=== PATIENT | male | born 1970 | race Hispanic/Latino ===

== ENCOUNTER 2019-01-23 22:17 | Inpatient (IN) | payer SELFPAY ==
--- NOTE | 2019-01-23 23:03 | RAD ---
1 view chest: CLINICAL HISTORY: Emergency exam, pain COMPARISON: None FINDINGS: There is no focal consolidation, effusion, or pneumothorax. Cardiac silhouette is normal in size. No acute osseous abnormality. IMPRESSION: No focal consolidation.
[2019-01-23 23:39] LABS: Bilirubin Negative (Negative); Blood, Urine Negative (Negative); Clarity Clear (Clear); Glucose, Urine (Dipstick) Greater than 1000 mg/dL (Negative); Leukocyte Negative Leu/uL (Negative); Nitrite Negative (Negative); Protein, Urine (Dipstick) Negative (Neg-Trace); Urobilinogen Normal mg/dL (Less than 2)
[2019-01-24 00:18] LABS: Hemoglobin 14.8 g/dL (14.0-18.0); Mean Corpuscular HGB CONC 34.1 g/dL (32.0-36.0); Mean Corpuscular Hemoglobin 32.7 pg (27.0-31.0); Mean Corpuscular Volume 95.9 fL (78.0-98.0); RBC Distribution Width 11.8 % (11.5-14.5); Red Blood Cell (RBC) Count 4.54 mill/uL (4.70-6.10); White Blood Cell (WBC) Count 4.7 thou/uL (4.8-10.8)
[2019-01-24 00:35] LABS: #Basophils 0.1 thou/uL (0.0-0.2); #Lymphocytes 1.4 thou/uL (1.20-3.40); #Monocytes 0.3 thou/uL (0.11-0.59); #Neutrophils 2.9 thou/uL (1.40-6.50); %Basophils 1.7 % (0.0-1.0); %Eosinophils 0.9 % (0.0-10.0); %Lymphocytes 29.2 % (21.0-51.0); %Monocytes 6.5 % (0.0-10.0); %Neutrophils 61.7 % (42.0-75.0); Mean Platelet Volume 10.4 fL (7.4-10.4); Platelet Count 115 thou/uL (130-400); Platelet Morphology Comment Appears Decreased
[2019-01-24 00:38] LABS: ALT (SGPT) 25 U/L (8-55); AST (SGOT) 16 U/L (5-34); Albumin 4.1 g/dL (3.5-5.0); Alkaline Phosphatase 81 U/L (40-150); Anion Gap 17 mmol/L (10-20); BUN (Urea Nitrogen) 8 mg/dL (8.9-20.6); Bilirubin, Total 0.4 mg/dL (0.2-1.2); Calc. Creatinine Clearance 0 mL/min (70-130); Carbon Dioxide 19 mmol/L (22-29); Chloride 105 mmol/L (98-107); Estimated GFR-MDRD Greater than 90; Globulin 2.8 g/dL (2.4-3.5); Glucose 406 mg/dL (70-105); Potassium 3.5 mmol/L (3.5-5.1); Protein, Total 6.9 g/dL (6.0-8.3); Sodium 137 mmol/L (136-145)
[2019-01-24] MEDS ORDERED: Ondansetron ODT 4 MG TAB PO PRN (01:25)
[2019-01-24] MEDS ORDERED: Dextrose 5% in Water 1,000 ML IV PRN (01:25)
[2019-01-24] MEDS ORDERED: Dextrose 50% Abboject 50 ML SYRINGE SLOW IVP PRN (01:25)
[2019-01-24] MEDS ORDERED: Acetaminophen 325 MG TAB PO PRN (01:25)
[2019-01-24 01:38] LABS: Hemoglobin A1c 10.9 % (4.0-6.0)
[2019-01-24] MEDS ORDERED: cloNIDine 0.1 MG TAB PO PRN (01:39)
--- NOTE | 2019-01-24 01:47 | PDOC.FPROB ---
FMR OB H&P: Medications - Current Home Medications: Medication Instructions Recorded Confirmed Type No Known 01/24/19 01/24/19 History Allergies/Adverse Reactions: Allergies Allergy/AdvReac Type Severity Reaction Status Date / Time No Known Allergies Allergy Unverified 01/24/19 01:38 FMR OB H&P: Results - Labs Lab results: Laboratory Results - last 24 hr 01/23/19 01/24/19 01/24/19 23:12 00:03 00:04 WBC 4.7 L RBC 4.54 L Hgb 14.8 Hct 43.6 MCV 95.9 MCH 32.7 H MCHC 34.1 RDW 11.8 Plt Count 115 L MPV 10.4 Neutrophils % 61.7 Neutrophils % (Manual) Not Reportable Lymphocytes % 29.2 Monocytes % 6.5 Eosinophils % 0.9 Basophils % 1.7 H Neutrophils # 2.9 Lymphocytes # 1.4 Monocytes # 0.3 Eosinophils # 0.0 Basophils # 0.1 Plt Morphology Comment Appears Decreased L Sodium Potassium Chloride Carbon Dioxide Anion Gap BUN Creatinine Estimated GFR (MDRD) Glucose Hemoglobin A1c Calcium Total Bilirubin AST ALT Alkaline Phosphatase Troponin I Serum Total Protein Albumin Globulin Albumin/Globulin Ratio Urine Color Colorless Urine Clarity Clear Urine pH 5.0 Ur Specific Helen 1.003 Urine Protein Negative Urine Glucose (UA) Greater than 1000 A Urine Ketones Negative Urine Blood Negative Urine Nitrite Negative Urine Bilirubin Negative Urine Urobilinogen Normal Ur Leukocyte Esterase Negative Plasma Alcohol 213 H B-Hydroxybutyrate 01/24/19 01/24/19 01/24/19 00:04 00:04 00:04 WBC RBC Hgb Hct MCV MCH MCHC RDW Plt Count MPV Neutrophils % Neutrophils % (Manual) Lymphocytes % Monocytes % Eosinophils % Basophils % Neutrophils # Lymphocytes # Monocytes # Eosinophils # Basophils # Plt Morphology Comment Sodium 137 Potassium 3.5 Chloride 105 Carbon Dioxide 19 L Anion Gap 17 BUN 8 L Creatinine 0.86 Estimated GFR (MDRD) Greater than 90 Glucose 406 H Hemoglobin A1c Calcium 9.0 Total Bilirubin 0.4 AST 16 ALT 25 Alkaline Phosphatase 81 Troponin I Less than 0.010 Serum Total Protein 6.9 Albumin 4.1 Globulin 2.8 Albumin/Globulin Ratio 1.5 Urine Color Urine Clarity Urine pH Ur Specific Helen Urine Protein Urine Glucose (UA) Urine Ketones Urine Blood Urine Nitrite Urine Bilirubin Urine Urobilinogen Ur Leukocyte Esterase Plasma Alcohol B-Hydroxybutyrate 0.44 H 01/24/19 00:04 WBC RBC Hgb Hct MCV MCH MCHC RDW Plt Count MPV Neutrophils % Neutrophils % (Manual) Lymphocytes % Monocytes % Eosinophils % Basophils % Neutrophils # Lymphocytes # Monocytes # Eosinophils # Basophils # Plt Morphology Comment Sodium Potassium Chloride Carbon Dioxide Anion Gap BUN Creatinine Estimated GFR (MDRD) Glucose Hemoglobin A1c 10.9 H Calcium Total Bilirubin AST ALT Alkaline Phosphatase Troponin I Serum Total Protein Albumin Globulin Albumin/Globulin Ratio Urine Color Urine Clarity Urine pH Ur Specific Helen Urine Protein Urine Glucose (UA) Urine Ketones Urine Blood Urine Nitrite Urine Bilirubin Urine Urobilinogen Ur Leukocyte Esterase Plasma Alcohol B-Hydroxybutyrate FMR OB H&P: A/P - Problem List (1) Hyperglycemia Current Visit: Yes Status: Acute Code(s): R73.9 - HYPERGLYCEMIA, UNSPECIFIED (2) Syncope Current Visit: Yes Status: Acute Code(s): R55 - SYNCOPE AND COLLAPSE (3) Dehydration Current Visit: Yes Status: Acute Code(s): E86.0 - DEHYDRATION (4) Hypertension Current Visit: Yes Status: Acute Code(s): I10 - ESSENTIAL (PRIMARY) HYPERTENSION Discussion: Date/Time: 01/24/19 0145 PCP: JI HPI: This is a 48 yo gentleman being admitted for multiple episodes of syncope in the last week. He states he will feel weak throughout his body sometimes having to lie down. He denies passing out or ever hitting his head. Symptoms resolve after a few minutes. He denies palpitations but he does have a throbbing pain on the left side of his chest which does not radiate. Nothing makes the pain better or worse. He denies focal weakness, headache, or visual disturbances. Patient walks to restroom in ED without any difficulty, denies dizziness/ weakness at the moment. PMH: no medical issues PSH: none Meds: none Allergies: NKDA Soc Hx: denies smoking, drugs. Drinks at 2-3 beers nightly and more on weekend. Denies any blackout drinking episodes. Fm Hx: denies history of CV or DM ED Course: 1L NS REVIEW OF SYSTEMS: Gen: no fever, chills, or sweats Neuro: see hpi Eyes: no visual changes ENT: no hearing changes, no sore throat, no congestion Resp: denies cough, SOB Card: no chest pain, denies palpitations GI: no N/V/D, no abdominal pain MSK: no myalgias, no joint pain/stiffness Skin: no rash, no erythema Vitals: T: 97.4 R: 20 BP: 160/90 P:80 Sat: 98% on RA PHYSICAL EXAMINATION: General: NAD, alert and oriented x3 HEENT: PERRLA, EOMI, normal sclera, oropharynx without erythema or exudate Neck: Supple. Full ROM. Heart/Cardiovascular System: RRR, Cap refill < 3 seconds, no rub, no murmur Lungs/Respiratory System: CTA-B, no resp distress Abdomen/Gastro-Intestinal System: no abdominal tenderness, normal bowel sounds Extremities: Warm extremities. No cyanosis or edema Neuro: No gross deficits appreciated. CN 2-12 grossly intact Psychiatry: Awake, Alert and cooperative with exam Skin: No lesions, rashes, or ulcers Musculoskeletal: Full ROM A/P: # Syncope likely 2/2 dehydration - monitor on tele overnight - Alcohol level 213 - suspect dehydration, arrhythmia cannot be complete ruled out at this time - trend trops - no focal weakness, will not pursue carotid Doppler/CT head at this time # Hyperglycemia - glucose 400, glucosuria - SSI - b-hydroxybutyrate, A1C ordered - Anion gap 17, do not suspect DKA at this time # HTN - PRN clonidine - monitor BP Fluids: NS 140 Code: full PPx: scd Dispo: suspect d/c tomorrow Addendum - Attending - Attending Attestation Date/Time: 01/24/19 5203 I personally evaluated the patient and discussed the management with Dr. Tosha Oreilly. I agree with the History, Examination, Assessment and Plan documented above with any addition or exceptions noted below. Patient here with presyncopal type symptoms over the last few days. He also has uncontrolled DM as a new diagnosis. He was also intoxicated at the time of his presentation. Patient to be admitted for IV fluid hydration, sobriety, insulin initiation and titration, and BP control. Further mgmt per clinical course.
[2019-01-24] MEDS ORDERED: Insulin Regular 300 UNITS/3 ML VIAL ONE (02:02)
--- NOTE | 2019-01-24 02:03 | PDOC.EVN ---
Event Note - Event Note Event Note: New diabetic A1c 10.9 BhB- 0.44 In addition to 10U short acting added 20U lantus (body weight 80 kg) Q1hr accucheck AM labs ordered for 0330 if gap widening will start insulin drip
[2019-01-24] MEDS ORDERED: Insulin Glargine 20 UNITS in Pre-Filled Syringe 1 EACH SC SCH (02:15)
[2019-01-24 03:44] LABS: #Lymphocytes 1.7 thou/uL (1.20-3.40); #Monocytes 0.3 thou/uL (0.11-0.59); #Neutrophils 2.2 thou/uL (1.40-6.50); %Lymphocytes 40.4 % (21.0-51.0); %Monocytes 6.8 % (0.0-10.0); %Neutrophils 50.8 % (42.0-75.0); Hemoglobin 14.4 g/dL (14.0-18.0); Mean Corpuscular HGB CONC 33.8 g/dL (32.0-36.0); Mean Corpuscular Hemoglobin 32.4 pg (27.0-31.0); Mean Corpuscular Volume 95.8 fL (78.0-98.0); Platelet Count 108 thou/uL (130-400); RBC Distribution Width 11.9 % (11.5-14.5); Red Blood Cell (RBC) Count 4.46 mill/uL (4.70-6.10); White Blood Cell (WBC) Count 4.2 thou/uL (4.8-10.8)
[2019-01-24 04:00] LABS: Anion Gap 16 mmol/L (10-20); BUN (Urea Nitrogen) 7 mg/dL (8.9-20.6); Calc. Creatinine Clearance 0 mL/min (70-130); Calcium 8.3 mg/dL (7.8-10.44); Carbon Dioxide 18 mmol/L (22-29); Chloride 108 mmol/L (98-107); Estimated GFR-MDRD Greater than 90; Glucose 287 mg/dL (70-105); Potassium 3.8 mmol/L (3.5-5.1); Sodium 138 mmol/L (136-145)
[2019-01-24 07:45] LABS: Troponin I Less than 0.010 ng/mL (< 0.028)
[2019-01-24] MEDS: Sodium Chloride 0.9% 1,000 ML IV SCH ×4 (10:01→19:54)
[2019-01-24] MEDS ORDERED: HumaLOG 300 UNITS/3 ML VIAL ONE (11:04)
[2019-01-24] MEDS: HumaLOG 300 UNITS/3 ML VIAL SC PRN ×2 (11:06→17:42)
[2019-01-24 13:10] VITALS: BMI 30.3
[2019-01-24 15:36] LABS: Anion Gap 11 mmol/L (10-20); BUN (Urea Nitrogen) 10 mg/dL (8.9-20.6); Calc. Creatinine Clearance 136 mL/min (70-130); Calcium 8.8 mg/dL (7.8-10.44); Carbon Dioxide 25 mmol/L (22-29); Chloride 106 mmol/L (98-107); Estimated GFR-MDRD Greater than 90; Glucose 221 mg/dL (70-105); Potassium 3.9 mmol/L (3.5-5.1); Sodium 138 mmol/L (136-145)
[2019-01-24] MEDS: metFORMIN 500 MG TAB PO SCH (17:42)
[2019-01-25] MEDS: Sodium Chloride 0.9% 1,000 ML IV SCH (01:58)
--- NOTE | 2019-01-25 05:25 | PDOC.FM ---
- Subjective Subjective: Mr. Damon is a 48yo male who presented to the ED for evaluation of multiple episodes of syncope/near syncope. He states that yesterday he felt weak and had to lie down several times. He does not have a PCP and is not aware of any chronic diseases. In the emergency department he was noted to have hypertension, elevated blood glucose, and acute alcohol intoxication. He was given 1L NS and admitted. - Objective MAR Reviewed: Yes Vital Signs & Weight: Vital Signs (12 hours) Temp Pulse Resp BP BP BP Pulse Ox 01/25/19 04:00 97.8 F 72 15 156/93 H 96 01/24/19 23:57 97.3 F L 87 18 150/96 H 98 01/24/19 20:00 98.1 F 82 18 169/100 H 97 01/24/19 19:53 169/100 H Weight Weight 82.611 kg I&O: 01/23/19 01/24/19 01/25/19 06:59 06:59 06:59 Intake Total 240 Balance 240 Result Diagrams: 01/24/19 03:32 01/24/19 15:06 Additional Labs: Laboratory Tests 01/24/19 01/24/19 01/24/19 00:03 00:04 00:04 Hemoglobin A1c 10.9 H Plasma Alcohol 213 H B-Hydroxybutyrate 0.44 H 01/24/19 01/24/19 01/24/19 05:46 07:05 11:02 POC Glucose 212 H 232 H Hemoglobin A1c Troponin I Less than 0.010 01/24/19 01/25/19 17:34 04:09 POC Glucose 167 H 178 H Phys Exam - Physical Examination Constitutional: NAD HEENT: PERRLA, moist MMs, sclera anicteric Neck: no JVD, supple Respiratory: no wheezing, no rales, no rhonchi, clear to auscultation bilateral Cardiovascular: RRR, no significant murmur, no rub Gastrointestinal: soft, non-tender, no distention, positive bowel sounds Musculoskeletal: no edema, pulses present Neurological: non-focal, normal sensation, moves all 4 limbs Psychiatric: normal affect, A&O x 3 Skin: no rash, normal turgor Dx/Plan (1) Hyperglycemia Code(s): R73.9 - HYPERGLYCEMIA, UNSPECIFIED Status: Acute (2) Hypertension Code(s): I10 - ESSENTIAL (PRIMARY) HYPERTENSION Status: Acute (3) Syncope Code(s): R55 - SYNCOPE AND COLLAPSE Status: Acute - Plan Plan: 1. Syncope * Has felt better overnight, no evidence of arrhythmia on telemetry. * Suspect his symptoms were likely due to dehydration. * Ordered UDS this am * Recommended close follow up outpatient. 2. Diabetes Mellitus, type II - new diagnosis * Blood glucose was 232 in the ER with >1000 glucosuria. He has no history of diabetes, however he does not regularly see a doctor. * Started on Metformin 500mg BID * Started on Mild sliding scale insulin and has received 5units of Humalog. * Last two accuchecks have been 160-170. * Patient is ready to go home and states that he will follow up with physician in clinic after discharge, will further titrate Metformin and reassess need for insulin outpatient. 3. Hypertension * Start Lisinopril 10mg * Used clonidine prn overnight * Will follow up outpatient. Dispo: Home, with outpatient follow up Fluids: NS 140 Code: Full PPx: scd Addendum - Attending - Attending Attestation Date/Time: 01/25/19 1126 I personally evaluated the patient and discussed the management with Dr. Nguyen I agree with the History, Examination, Assessment and Plan documented above with any addition or exceptions noted below. Patient alert responsive NAD he is feeling much improved EKG with NSR. Telemetry no abnormal rhythms noted he is stable for dismissal later today with outpatient f/u.
[2019-01-25] MEDS ORDERED: Lisinopril 10 MG TAB PO SCH (09:00)
[2019-01-25] MEDS: metFORMIN 500 MG TAB PO SCH (09:20)
[2019-01-25] MEDS: HumaLOG 300 UNITS/3 ML VIAL SC PRN (09:23)
[2019-01-25 13:04] LABS: Amphetamine Not Detected (NotDetected); Barbiturates Screen Not Detected (NotDetected); Benzodiazepine Screen Not Detected (NotDetected); Cocaine Metabolite Screen Not Detected (NotDetected); Medtox Control Line Valid? VALID (VALID); Medtox Reader # READER 1; Methadone Not Detected (NotDetected); Methamphetamine Not Detected (NotDetected); Opiate Screen Not Detected (NotDetected); Oxycodone Screen Not Detected (NotDetected); Phencyclidine (PCP) Not Detected (NotDetected); THC/Cannabinoid Screen Not Detected (NotDetected); Tricyclic Screen Not Detected (NotDetected)
[2019-01-25 17:18] VITALS: BP 168/98; TEMP 97.9
--- NOTE | 2019-01-26 15:18 | DIS ---
DATE OF ADMISSION: 01/24/2019 DATE OF DISCHARGE: 01/25/2019 ADMITTING ATTENDING: HARRIET Allen DISCHARGE ATTENDING: NAM HOBSON RESIDENT: Melissa Nguyen MD. CONSULTS: None. PROCEDURES: None. PRIMARY DIAGNOSIS: Syncope likely secondary to dehydration. SECONDARY DIAGNOSES: 1. Diabetes type 2. 2. Hypertension. DISCHARGE MEDICATIONS: 1. Metformin 500 mg p.o. b.i.d. 2. Lisinopril 10 mg p.o. Q DAY DISCONTINUED MEDICATIONS: None. HISTORY OF PRESENT ILLNESS: Mr. Damon is a 48-year-old male who presented to the ER for evaluation and syncope and near syncope, feeling weak and dizzy. He was admitted for observation and given fluids. Lab studies were performed to rule out cardiac causes. Upon lab studies, he was found to have diabetes type 2 with elevated blood glucose. Diabetes medications were started. His blood pressure was elevated throughout his hospital stay, so therefore blood pressure medications were started. He improved clinically with fluids and diabetes and blood pressure medications. His notable labs were glucose 232 to 167, sodium 138, potassium 3.9, chloride 106, carbon dioxide 25, anion gap 11, BUN 10, creatinine 0.77. His white count was 4.2. His hemoglobin was 14.4, hematocrit 42.7, and platelets 108. His urine showed glucosuria. His urine drug screen was negative. His plasma alcohol on admission was 213 and his beta-hydroxybutyrate was 0.44. DISPOSITION: Stable. DISCHARGE INSTRUCTIONS: Home with consistent carb diet, following diabetes protocol. Activity, no restrictions, ad trudy. Follow up within a month for an appointment with [facility]. Job ID: [id number] [facility]
== END 2019-01-25 17:45 | disposition home or self-care (01) | DRG 641 ==
LOC: ERS 22:17 → ERHOLD 01-24 05:31 → 2NO 01-24 12:56
PROVIDERS: ADMIT Student in an Organized Health Care Education/Training Program; ATTEND Student in an Organized Health Care Education/Training Program
DX: E86.0 Dehydration (principal); I10 Essential (primary) hypertension; E11.65 Type 2 diabetes mellitus with hyperglycemia
CPT/HCPCS: 36415; 36416; 71045; 80053; 80306; 80307; 81003; 82010; 83036; 84484; 85025; 93005; 96360; 96361; J1815

== ENCOUNTER 2021-03-04 10:18 | Emergency (ER) | payer OTHER, SELFPAY ==
[~2021-03-04 10:18] MED LIST: Iopamidol-370 76% 500 ML 1 ML ONE
[2021-03-04 11:50] LABS: Hemoglobin 13.1 g/dL (14.0-18.0); Mean Corpuscular HGB CONC 35.4 g/dL (32.0-36.0); Mean Corpuscular Hemoglobin 32.9 pg (27.0-31.0); Mean Corpuscular Volume 92.8 fL (78.0-98.0); Red Blood Cell (RBC) Count 3.98 mill/uL (4.70-6.10)
[2021-03-04 11:53] LABS: Bacteria/HPF None Seen HPF (None Seen); Bilirubin Negative (Negative); Blood, Urine Negative (Negative); Clarity Clear (Clear); Glucose, Urine (Dipstick) Normal (Negative); Ketone, Urine 150 mg/dL (Negative); Leukocyte 75 Leu/uL (Negative); Nitrite Negative (Negative); Protein, Urine (Dipstick) 30 mg/dL (Neg-Trace); RBC/HPF 0-3 HPF (0-3); Specific Gravity, Urine 1.028 (1.002-1.036); Squamous Epithelial 0-3 HPF (0-3); Urobilinogen 6 mg/dL (Less than 2); pH, Urine 5.5 (5.0-9.0)
[2021-03-04 12:04] LABS: ALT (SGPT) 20 U/L (8-55); AST (SGOT) 17 U/L (5-34); Albumin 4.1 g/dL (3.5-5.0); Alkaline Phosphatase 42 U/L (40-110); Anion Gap 14 mmol/L (10-20); BUN (Urea Nitrogen) 13 mg/dL (8.4-25.7); Bilirubin, Total 0.8 mg/dL (0.2-1.2); Calc. Creatinine Clearance 0 mL/min (70-130); Calcium 8.9 mg/dL (7.8-10.44); Carbon Dioxide 24 mmol/L (22-29); Chloride 98 mmol/L (98-107); Globulin 3.6 g/dL (2.4-3.5); Glucose 130 mg/dL (70-105); Lipase 10 U/L (8-78); Potassium 4.2 mmol/L (3.5-5.1); Protein, Total 7.7 g/dL (6.0-8.3); Sodium 132 mmol/L (136-145)
[2021-03-04 12:13] LABS: #Lymphocytes 0.9 thou/uL (1.20-3.40); #Monocytes 0.3 thou/uL (0.11-0.59); #Neutrophils 6.2 thou/uL (1.40-6.50); %Basophils 0.2 % (0.0-1.0); %Eosinophils 0.1 % (0.0-10.0); %Monocytes 4.6 % (0.0-10.0); %Neutrophils 83.2 % (42.0-75.0); Mean Platelet Volume 11.2 fL (7.4-10.4); Platelet Count 120 thou/uL (130-400); White Blood Cell (WBC) Count 7.4 thou/uL (4.8-10.8)
[2021-03-04 12:14] LABS: Band 3 % (5-11); Large Platelets MODERATE; Lymphocytes 11 % (21-51); MDiff Complete? YES; Monocytes 6 % (0-10); Neutrophil 80 % (42-75); Platelet Morphology Comment Appears Adequate
[2021-03-04] MEDS ORDERED: Ketorolac Tromethamine 30 MG/ML VIAL ONE (14:27)
[2021-03-04 17:16] LABS: SARS-CoV-2 NAA Rapid Test DETECTED (NotDetected)
== END 2021-03-04 17:58 | disposition home or self-care (01) ==
LOC: ERS 10:18
DX: U07.1 COVID-19 (principal); R10.10 Upper abdominal pain, unspecified; E11.9 Type 2 diabetes mellitus without complications; E78.5 Hyperlipidemia, unspecified; I10 Essential (primary) hypertension; Z79.84 Long term (current) use of oral hypoglycemic drugs; Z79.899 Other long term (current) drug therapy
CPT/HCPCS: 74177; 80053; 81003; 81015; 83690; 84484; 85025; 93005; 96374; J1885; Q9967; U0002; U0005

== ENCOUNTER 2021-10-19 19:02 | Emergency (ER) | payer OTHER, SELFPAY ==
[2021-10-19] MEDS ORDERED: Aspirin Chewable 81 MG TAB ONE (19:37)
[2021-10-19] MEDS ORDERED: Famotidine/PF 20 mg/2ml Vial ONE (19:37)
[2021-10-19] MEDS ORDERED: Ondansetron ODT 8 MG TAB ONE (19:37)
[2021-10-19 20:01] LABS: #Lymphocytes 0.6 thou/uL (1.20-3.40); #Monocytes 0.6 thou/uL (0.11-0.59); #Neutrophils 10.1 thou/uL (1.40-6.50); %Basophils 0.2 % (0.0-1.0); %Eosinophils 0.4 % (0.0-10.0); %Lymphocytes 5.6 % (21.0-51.0); %Monocytes 4.8 % (0.0-10.0); %Neutrophils 88.9 % (42.0-75.0); Mean Corpuscular HGB CONC 33.5 g/dL (32.0-36.0); Mean Corpuscular Hemoglobin 32.6 pg (27.0-31.0); Mean Corpuscular Volume 97.3 fL (78.0-98.0); Mean Platelet Volume 10.7 fL (7.4-10.4); Platelet Count 138 thou/uL (130-400); RBC Distribution Width 12.4 % (11.5-14.5); Red Blood Cell (RBC) Count 4.28 mill/uL (4.70-6.10); White Blood Cell (WBC) Count 11.4 thou/uL (4.8-10.8)
[2021-10-19] MEDS ORDERED: Mag-Al 1200 mg/1200 mg/30 ML UDCUP ONE (20:02)
[2021-10-19] MEDS ORDERED: Lidocaine Viscous Sol 2% 15 ml UD Cup ONE (20:02)
[2021-10-19 20:21] LABS: ALT (SGPT) 16 U/L (8-55); AST (SGOT) 13 U/L (5-34); Albumin 4.5 g/dL (3.5-5.0); Alkaline Phosphatase 51 U/L (40-110); Anion Gap 16 mmol/L (10-20); BUN (Urea Nitrogen) 17 mg/dL (8.4-25.7); Bilirubin, Total 0.7 mg/dL (0.2-1.2); Calc. Creatinine Clearance 0 mL/min (70-130); Calcium 8.9 mg/dL (7.8-10.44); Carbon Dioxide 24 mmol/L (22-29); Chloride 105 mmol/L (98-107); Globulin 3.1 g/dL (2.4-3.5); Glucose 149 mg/dL (70-105); Lipase 18 U/L (8-78); Potassium 3.9 mmol/L (3.5-5.1); Protein, Total 7.6 g/dL (6.0-8.3); Sodium 141 mmol/L (136-145)
== END 2021-10-19 21:19 | disposition home or self-care (01) ==
LOC: ERS 19:02
DX: K29.00 Acute gastritis without bleeding (principal); R07.9 Chest pain, unspecified; E78.5 Hyperlipidemia, unspecified; I10 Essential (primary) hypertension; E11.9 Type 2 diabetes mellitus without complications; Z79.899 Other long term (current) drug therapy; Z79.84 Long term (current) use of oral hypoglycemic drugs
CPT/HCPCS: 71045; 80053; 83690; 84484; 85025; 93005; 96374; Q0162; S0028

== ENCOUNTER 2022-12-29 22:24 | Observation (INO) | payer SELFPAY ==
[2022-12-29] MEDS ORDERED: Acetaminophen 500 MG TAB ONE (23:48)
[2022-12-29] MEDS ORDERED: Aspirin Chewable 81 MG TAB ONE (23:48)
[2022-12-30] LABS: ALT (SGPT) 23 U/L (8-55); AST (SGOT) 20 U/L (5-34); Alkaline Phosphatase 43 U/L (40-110); Anion Gap 13 mmol/L (10-20); BUN (Urea Nitrogen) 14 mg/dL (8.4-25.7); Bilirubin, Total 0.4 mg/dL (0.2-1.2); Calc. Creatinine Clearance 0 mL/min (70-130); Calcium 9.7 mg/dL (7.8-10.44); Carbon Dioxide 23 mmol/L (22-29); Chloride 95 mmol/L (98-107); Estimated GFR 76; Globulin 3.7 g/dL (2.4-3.5); Glucose 220 mg/dL (70-105); Potassium 4.3 mmol/L (3.5-5.1); Protein, Total 7.7 g/dL (6.0-8.3); Sodium 127 mmol/L (136-145)
[2022-12-30 00:10] LABS: CK (CPK) 44 U/L (30-200)
[2022-12-30 00:23] LABS: #Monocytes 1.2 thou/uL (0.11-0.59); #Neutrophils 5.2 thou/uL (1.40-6.50); %Basophils 0.5 % (0.0-1.0); %Eosinophils 0.1 % (0.0-10.0); %Lymphocytes 13.7 % (21.0-51.0); %Neutrophils 69.4 % (42.0-75.0); Hemoglobin 12.7 g/dL (14.0-18.0); Mean Corpuscular Hemoglobin 30.8 pg (27.0-31.0); Mean Corpuscular Volume 90.8 fl (78.0-98.0); Mean Platelet Volume 14.2 fL (7.4-10.4); Platelet Count 117 10x3/uL (130-400); RBC Distribution Width 12.7 % (11.5-14.5); Red Blood Cell (RBC) Count 4.12 mill/uL (4.70-6.10); White Blood Cell (WBC) Count 7.5 10x3/uL (4.8-10.8)
[2022-12-30 00:54] LABS: CellaVision Operator ID LAB.JMM; Elliptocytes SLIGHT = 2-5 cells HPF (0-1); Macrocytosis SLIGHT = 6-15 cells HPF (0-5); Platelet Adequacy Comment Platelets Decreased; Polychromasia SLIGHT = 2-3 cells HPF (0-2)
[2022-12-30] MEDS ORDERED: HumaLOG 300 UNITS/3 ML VIAL SC PRN ×2 (01:16)
[2022-12-30] MEDS ORDERED: Nitroglycerin 0.4 MG TAB (25 Tab Bottle) SL PRN (01:16)
[2022-12-30] MEDS ORDERED: Dextrose 50% Abboject 50 ML SYRINGE SLOW IVP PRN (01:16)
[2022-12-30] MEDS ORDERED: Glucagon 1 MG/ML KIT IM PRN (01:16)
[2022-12-30] MEDS ORDERED: Ondansetron ODT 4 MG TAB PO PRN (01:16)
[2022-12-30] MEDS ORDERED: Dextrose 5% in Water 1,000 ML IV PRN (01:16)
[2022-12-30] MEDS ORDERED: Acetaminophen 325 MG TAB PO PRN (01:16)
[2022-12-30] MEDS ORDERED: Ondansetron PF 4 MG/2 ML Vial IVP PRN (01:16)
[2022-12-30 03:14] VITALS: BMI 28.5
[2022-12-30 03:21] LABS: SARS-CoV-2 NAA Rapid Test Not Detected (NotDetected)
[2022-12-30 03:22] LABS: Troponin I 0.039 ng/mL (< 0.028)
[2022-12-30 03:26] LABS: Anion Gap 16 mmol/L (10-20); BUN (Urea Nitrogen) 14 mg/dL (8.4-25.7); Calc. Creatinine Clearance 106 mL/min (70-130); Calcium 8.6 mg/dL (7.8-10.44); Carbon Dioxide 18 mmol/L (22-29); Cardiac Risk 5.5 (Less than 4.5); Chloride 102 mmol/L (98-107); Cholesterol 138 mg/dl (< 200 Desired); Estimated GFR 99; Glucose 233 mg/dL (70-105); HDL Cholesterol 25 mg/dL (>60 Neg Risk); LDL Cholesterol, Calculated 95 mg/dL; Potassium 4.4 mmol/L (3.5-5.1); Sodium 132 mmol/L (136-145); Triglycerides 92 mg/dL (Less than 150)
[2022-12-30 06:28] LABS: Troponin I 0.027 ng/mL (< 0.028)
[2022-12-30] MEDS ORDERED: Heparin 10,000 UNITS/ 10 ML VIAL ONE (08:07)
[2022-12-30] MEDS ORDERED: Aspirin Chewable 81 MG TAB PO SCH (09:00)
[2022-12-30] MEDS ORDERED: Atorvastatin Calcium 40 MG TAB PO SCH (09:00)
[2022-12-30 16:00] VITALS: BP 120/73; TEMP 98.6
== END 2022-12-30 18:04 | disposition home or self-care (01) ==
LOC: ERS 22:24 → 2SW 12-30 01:18
PROVIDERS: ADMIT Student in an Organized Health Care Education/Training Program; ATTEND Family Medicine
DX: R07.9 Chest pain, unspecified (principal); E11.9 Type 2 diabetes mellitus without complications; T67.5XXA Heat exhaustion, unspecified, initial encounter; I10 Essential (primary) hypertension; E87.1 Hypo-osmolality and hyponatremia; E78.5 Hyperlipidemia, unspecified; Z20.822 Contact with and (suspected) exposure to COVID-19; Z79.82 Long term (current) use of aspirin; Z79.84 Long term (current) use of oral hypoglycemic drugs; Z79.899 Other long term (current) drug therapy
CPT/HCPCS: 36415; 36416; 71045; 78452; 80048; 80053; 80061; 82550; 83605; 84484; 85025; 87040; 93005; 93017; 93306; A9500; G0378; J0153; J1644

== ENCOUNTER 2023-04-02 18:42 | Emergency (ER) | payer SELFPAY ==
[~2023-04-02 18:42] MED LIST changes: -Iopamidol-370 76% 500 ML 1 ML ONE; +Iopamidol-370 76% 500 ML MDV (1 ML CHARGE) ONE
[2023-04-02] MEDS ORDERED: Ondansetron PF 4 MG/2 ML Vial ONE (19:53)
[2023-04-02 20:17] LABS: #Basophils 0.1 thou/uL (0.0-0.2); #Eosinphils 0.1 thou/uL (0.0-0.7); #Monocytes 0.5 thou/uL (0.11-0.59); #Neutrophils 5.8 thou/uL (1.40-6.50); %Basophils 0.6 % (0.0-1.0); %Eosinophils 0.7 % (0.0-10.0); %Lymphocytes 22.8 % (21.0-51.0); %Monocytes 5.5 % (0.0-10.0); %Neutrophils 70.2 % (42.0-75.0); Hematocrit 38.3 % (42.0-52.0); Hemoglobin 12.7 g/dL (14.0-18.0); Mean Corpuscular HGB CONC 33.2 g/dL (32.0-36.0); Mean Corpuscular Hemoglobin 31.3 pg (27.0-31.0); Mean Corpuscular Volume 94.3 fl (78.0-98.0); Mean Platelet Volume 13.2 fL (7.4-10.4); Platelet Count 141 10x3/uL (130-400); RBC Distribution Width 13.4 % (11.5-14.5); Red Blood Cell (RBC) Count 4.06 mill/uL (4.70-6.10); White Blood Cell (WBC) Count 8.3 10x3/uL (4.8-10.8)
[2023-04-02 20:45] LABS: Bacteria/HPF None Seen HPF (None Seen); Bilirubin Negative (Negative); Blood, Urine 3+ (Negative); CAUTI Indications for Culture Pelvic or flank pain; Clarity Clear (Clear); Glucose, Urine (Dipstick) Normal (Negative); Ketone, Urine Negative (Negative); Leukocyte 25 Leu/uL (Negative); Mucous/LPF Rare LPF (<2+); Nitrite Negative (Negative); Protein, Urine (Dipstick) 30 mg/dL (Neg-Trace); RBC/HPF Greater than 50 HPF (0-3); Specific Gravity, Urine 1.029 (1.002-1.036); Squamous Epithelial 0-3 HPF (0-3)
[2023-04-02 20:47] LABS: Urine Culture Reflex No No
[2023-04-02] MEDS ORDERED: Ketorolac Tromethamine 30 MG/ML VIAL ONE (20:51)
[2023-04-02 20:56] LABS: ALT (SGPT) 9 U/L (8-55); AST (SGOT) 10 U/L (5-34); Albumin 4.7 g/dL (3.5-5.0); Alkaline Phosphatase 51 U/L (40-110); Anion Gap 16 mmol/L (10-20); BUN (Urea Nitrogen) 21 mg/dL (8.4-25.7); Bilirubin, Total 0.2 mg/dL (0.2-1.2); Calc. Creatinine Clearance 0 mL/min (70-130); Calcium 9.7 mg/dL (7.8-10.44); Carbon Dioxide 25 mmol/L (22-29); Chloride 104 mmol/L (98-107); Estimated GFR 67; Globulin 2.8 g/dL (2.4-3.5); Glucose 125 mg/dL (70-105); Potassium 3.8 mmol/L (3.5-5.1); Protein, Total 7.5 g/dL (6.0-8.3); Sodium 141 mmol/L (136-145)
== END 2023-04-02 23:53 | disposition home or self-care (01) ==
LOC: ERS 18:42
DX: N20.0 Calculus of kidney (principal); E11.9 Type 2 diabetes mellitus without complications; I10 Essential (primary) hypertension; E78.5 Hyperlipidemia, unspecified; Z79.84 Long term (current) use of oral hypoglycemic drugs; Z79.899 Other long term (current) drug therapy
CPT/HCPCS: 74177; 80053; 81001; 85025; 96361; 96374; 96375; J1885; J2405; Q9967